=== PATIENT | female | born 2005 | race Caucasian/White ===

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

== ENCOUNTER 2023-02-18 10:32 | Emergency (ER) | payer MEDICAID, SELFPAY ==
--- NOTE | 2023-02-18 10:30 | RT.EKG_ITS ---
APPROVED REPORT Exam: Resting ECG Reason for Exam: chest pain Patient Location: E HR:76 bpm ECG Measurements Heart Rate 76 AXIS SD 162 P 57 QRSd 98 QRS 87 QT 367 T 57 QTc 413 Conclusion Sinus rhythm.. V-rate 60- [address]. [address] segment or T wave abnormalities to suggest occlusive MA
[2023-02-18 10:37] VITALS: BP 125/77; PULSE 87; RESP 18; TEMP 36.9; O2SAT 97
--- NOTE | 2023-02-18 12:02 | ED.GENADUL_ITS ---
Discharge Plan Disposition Patient Disposition: Home Condition: Good Discharge Details Clinical Impression: Chest wall pain, chronic, Acute chest wall pain Primary Care Provider: Unknown,Unknown ED Provider: Fe Ryan Home Meds and New Rx's Prescriptions: Continued Kyleena 17.5 mcg/24 hrs (5 yrs) 19.5 mg intrauterine device 1 device intrauterine ONCE Qty: 1 0RF Discharge Instructions Instructions: Chest Wall Pain (ED) Additional Instructions: As we discussed, your chronic chest pain sounds muscular in nature. I do encourage that you stop smoking, cut back on red pills and encourage water intake. You may use Tylenol and ibuprofen as needed for discomfort. May also try topical options such as heat or ice as well as lidocaine patches which are available [id number]. I also encourage you to take a home test as you declined when here today. As we discussed, there are certainly testing that you can have completed should you want to return for any further. I would like for you to follow-up with your primary care as it sounds to be an ongoing issue for you. If you develop shortness of breath, difficulty breathing or fever/chills or other new/worsening symptom please seek care urgently once again. Discharge Data Discharge Date/Time-TO BE ENTERED AT DEPARTURE: 02/18/23 12:23 Medical Decision Making Patient is a 17-year-old female presenting today for chest pain. She reports that she has had this ongoing for over a year. Was seen at outside emergency department for the same at which time she did not have a definitive diagnosis made per the patient. She denies any shortness of breath. No pain with deep inspiration. Pain is more with twisting movements, lifting maple syrup at work and other movements of the upper extremities. [place] like pain was increased today compared to her more chronic pain although she is not having any significant pain currently. She declines any analgesics and states that she does not take at home as she does not like taking medications. States that she does have some low-level nausea in the morning. It does have an IUD in place and does not feel that she is declines a test here. She does have local primary care who she sees routinely. Has not discussed her chest pain with her primary care. She denies any family history of CAD or heart disease. No history of DVT or PE. On exam, patient appears nontoxic. She is hemodynamically stable. Lung sounds are clear, normal cardiac exam. No lower extremity edema. She does have reproducible chest pain with palpation as well as with movement of the upper extremities and twisting of the chest wall. Really concerned for musculoskeletal cause given the reproducibility. 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 She is not having exertional symptoms to suggest ACS or she have a personal or family history to suggest this. Has not had any calf tenderness, shortness of breath to suggest PE. Wells score is negative. Discussed further evaluation including imaging and labs and patient declines. States that her lunch break is over and would like to be able to go back to work. She is aware that we have not completed any further diagnostic evaluation at this time. She would prefer to discuss this further with her primary care. She is aware she may return at any time for further evaluation work-up. All of her questions and concerns were addressed and she is in agreement with this plan. HPI General Date/Time Provider Initiated Documentation: 02/18/23 11:00 . Limitations to Documentation: no limitations . Information obtained by: patient and RN notes reviewed . History of Present Illness 17 year old F presents to the emergency department with the chief complaint of Anterior chest pain, described as moderate and similar to prior episodes, Quality is described as stabbing and aching, and is localized to the chest. Patient reports no radiation. Patient started experiencing this year(s) and it has been intermittent. Immobilization improves symptom(s), Movement worsens symptoms (Lifting at work) . Patient notes no other symptoms.. Patient did receive the following treatments prior to arrival, none Related Data Home Medications Medication Instructions Recorded Confirmed levonorgestrel 17.5 mcg/24 hrs 1 device intrauterine ONCE #1 ea 04/12/21 02/18/23 (5yrs) 19.5mg intrauterine device (Kyleena) Previous Rx's Medication Instructions Recorded levonorgestrel 17.5 mcg/24 hrs 1 device intrauterine ONCE #1 ea 04/12/21 (5yrs) 19.5mg intrauterine device (Kyleena) Allergies Allergy/AdvReac Type Severity Reaction Status Date / Time No Known Allergies Allergy Verified 02/18/23 10:40 General Stated Complaint: Chest Pain BRYSON: 3 Review of Systems Constitutional Constitutional: Reports as per HPI, Denies chills, Denies fever(s), Denies headache(s) and Denies poor appetite Eyes Eyes: Denies change in vision ENT Ears, Nose, Mouth, and Throat: Denies dizziness and Denies headache(s) Cardiovascular Cardiovascular: Reports as per HPI, Denies dyspnea and Denies dyspnea on exertion Respiratory Respiratory: Reports as per HPI, Denies chest congestion, Denies cough, Denies pain on inspiration, Denies pain with cough, Denies dyspnea and Denies dyspnea on exertion Gastrointestinal Gastrointestinal: Reports as per HPI, Denies abdominal pain, Denies diarrhea, Denies nausea and Denies vomiting Musculoskeletal Musculoskeletal: Reports as per HPI and Denies back pain Integumentary/Breasts Skin/Breast: Reports as per HPI and Denies rash Neurologic Neurologic: Reports as per HPI, Denies dizziness and Denies headache(s) PFSH All Active Problems (Updated 02/18/23 @ 12:16 by PETRONA Centeno) Chest wall pain, chronic (Acute) Acute chest wall pain (Acute) IUD surveillance (Acute 04/12/21) Contraceptive management (Acute) Depression (Chronic) Considers killing herself daily, has thought of plans, uncertain if she would follow through on one. Is interested in a therapist. Skeptical of meds Need for HPV vaccine (Acute) needs HPV #2 Anxiety (Acute 05/02/15) Learning difficulty (Acute 05/02/15) BMI (body mass index), pediatric, 5% to less than 85% for age (Chronic 01/10/16) Attention deficit hyperactivity disorder, combined type (Acute 07/07/15) Medical History (Updated 02/18/23 @ 12:16 by PETRONA Centeno) Anxiety Attention deficit hyperactivity disorder (ADHD) started meds age 4-7, Dr. Garay Right flank pain Family History Mother Substance abuse Bleeding disorder itp Father Essential hypertension Heart disease Other Alcohol abuse Social History (Updated 03/15/21 @ 12:17 by Radha Mai MD) Smoking/Tobacco Use Status: Current every day Tobacco Type: e-cigarettes Smoking risk assessment performed?: Yes Alcohol Intake: current Drug use: Current Sobriety Substance use type: marijuana Counseling given: Yes Housing: apartment Education Level: high school Details: graduates 2021 Sexually active: Yes Do you feel safe at home: Yes Do you feel safe in your relationship?: Yes Female Reproductive History Menstrual control method: progestin IUCD History History 0 Para Hx # Term Pregnancies Multiple births Hx # Pregnancies Ectopic pregnancies AB induced Hx Number of Living Children AB spontaneous Exam Const General: cooperative, healthy appearing, comfortable, no acute distress and well developed Nutritional Appearance: average body habitus and well nourished Orientation: alert, awake and oriented x3 HENMT Head: normal to inspection Ears: hearing grossly normal bilaterally Mouth: moist mucous membranes Chest Chest: normal inspection of the chest, normal palpation of entire chest wall and no crepitus Resp Effort & Inspection: normal respiratory effort, able to speak in complete sentences and no respiratory distress Auscultation: clear to auscultation bilaterally, no rales, no rhonchi and no w heezes Cardio Rate: regular rate Rhythm: regular rhythm Heart Sounds: S1 normal and S2 normal Back/Spine/Pelvis Thoracic/Lumbar Spine: thoracic and lumbar spine normal to inspection Skin General skin exam: no rashes or lesions noted Trauma: no lacerations or abrasions Neuro General: patient alert, patient awake and patient oriented x3 Cognition: normal cognition Speech: speech normal Gait: normal gait Extrem General: normal to inspection, capillary refill normal, no pedal edema, no calf tenderness and normal gait Psych Appearance: grossly normal and well kempt Mental Status: mental status grossly normal Speech and Movement: speech and movement normal Course Vital Signs Vital signs: Vital Signs Temperature 36.9 C 02/18/23 10:37 Pulse 87 02/18/23 10:37 Respiratory Rate 18 02/18/23 10:37 Blood Pressure 125/77 02/18/23 10:37 Pulse Oximetry 97 02/18/23 10:37 Temperature 36.9 C 02/18/23 10:37 Temperature Source Skin 02/18/23 10:37 Pulse 87 02/18/23 10:37 Respiratory Rate 18 02/18/23 10:37 Respiratory Effort Normal, Non-Labored 02/18/23 10:41 Blood Pressure 125/77 02/18/23 10:37 Blood Pressure Position Sitting 02/18/23 10:37 Pulse Oximetry 97 02/18/23 10:37 Oxygen Delivery Method Room Air 02/18/23 10:37 Oxygen Flow Rate 0 02/18/23 10:37 Pain Level 7 02/18/23 10:37 PAWSS Have you Been Recently Intoxicated or Drunk Within the Last 30 days?: No Have you Ever Experienced Previous Episodes of Alcohol Withdrawal?: No Have you ever Experienced Withdrawal Seizures?: No Have you ever Experienced Delirium Tremens(DT)s?: No Have you ever undergone Alcohol Rehabilitation Treatment (i.e, inpt ot outpatient treatment programs)?: No Have you ever Experienced Blackouts?: No Have you ever Combined Alcohol with other Downers within the last 90 days?: No Have you ever Combined Alcohol with any other Substance of Abuse during the last 90 days?: No Positive Blood Alcohol level on Presentation? [PCS.BAL]: No Evidence of Increased Autonomic Activity (i.e. HR>120, tremor, sweating, agitation, nausea)?: No Result: 0
[2023-02-18 12:22] VITALS: BP 125/77; PULSE 87; RESP 18; TEMP 36.9; O2SAT 97
== END 2023-02-18 12:23 | disposition home or self-care (01) ==
PROVIDERS: Emergency Provider Physician Assistant
DX: R07.89 Other chest pain (principal)
CPT/HCPCS: 93005; 99283; 93010

== ENCOUNTER 2024-01-08 21:29 | Emergency (ER) | payer MEDICAID, SELFPAY ==
[2024-01-08 21:36] VITALS: BP 119/65; PULSE 86; RESP 15; TEMP 36.9; O2SAT 98
[2024-01-08 21:37] VITALS: O2SAT 99
[2024-01-08 21:39] VITALS: BP 119/65; PULSE 68; O2SAT 98
[2024-01-08 21:40] VITALS: BP 119/65; PULSE 86; RESP 15; TEMP 36.9; O2SAT 98
[2024-01-08 21:41] VITALS: O2SAT 96
[2024-01-08 21:46] VITALS: BP 117/71; PULSE 83
[2024-01-08 21:59] LABS: Bilirubin Negative (Negative); Blood Negative (Negative); Clarity Sl Cloudy (Clear); Glucose Negative (Negative); Ketones 15 mg/dL (Negative); Leukocyte Esterase Small (Negative); Nitrite Negative (Negative); Specific Gravity 1.025 (1.005-1.025); pH 6.5 (5-8)
[2024-01-08 22:07] LABS: Bacteria Moderate HPF (Negative); C & S Indicated? No/Sq. Contamination; Casts Negative LPF (Negative); Crystals Negative HPF (Negative); Epithelial Cells Many HPF (Negative); Mucus Moderate (Negative); RBC 0-2 HPF (0-2)
--- NOTE | 2024-01-08 22:24 | ED.GENADUL_ITS ---
Discharge Plan Discharge Details Chief Complaint: Abd Prob Primary Care Provider: None,None ED Provider: Neftaly Basurto Home Meds and New Rx's Prescriptions: No Action Kyleena 17.5 mcg/24 hrs (5 yrs) 19.5 mg intrauterine device 1 device intrauterine ONCE Qty: 1 0RF HPI General Date/Time Provider Initiated Documentation: 01/08/24 21:33 . HPI Narrative: 18-year-old female presents with over 1 month of intermittent daily vomiting body aches nausea and abdominal discomfort upper in nature has noted some small amounts of blood in her urine without dysuria. 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 This has not been helping. Patient denies abdominal surgery in the past Related Data Home Medications ?Medication ?Instructions ?Recorded ?Confirmed levonorgestrel 17.5 mcg/24 hr (up 1 device intrauterine ONCE #1 ea 04/12/21 01/08/24 to 5 yrs) 19.5mg intrauterine device (Kyleena) Previous Rx's ?Medication ?Instructions ?Recorded levonorgestrel 17.5 mcg/24 hr (up 1 device intrauterine ONCE #1 ea 04/12/21 to 5 yrs) 19.5mg intrauterine device (Kyleena) Allergies Allergy/AdvReac Type Severity Reaction Status Date / Time No Known Allergies Allergy Verified 01/08/24 21:44 General Stated Complaint: Abd Prob BRYSON: 4 Exam Narrative Exam Narrative: Alert oriented interactive Moist mucous membranes tolerate secretions Abdomen soft nontender nondistended mild subjective discomfort in right upper quadrant without guarding or rebounding Moving all extremities without deficit No evidence of rash or trauma Course Vital Signs Vital signs: Vital Signs Temperature 36.9 C 01/08/24 21:36 Pulse 86 01/08/24 21:36 Respiratory Rate 15 01/08/24 21:36 Blood Pressure 119/65 01/08/24 21:36 Pulse Oximetry 98 01/08/24 21:36 Temperature 36.9 C 01/08/24 21:40 Temperature Source Oral 01/08/24 21:40 Pulse 86 01/08/24 21:40 Respiratory Rate 15 01/08/24 21:40 Respiratory Effort Normal 01/08/24 21:40 Blood Pressure 119/65 01/08/24 21:40 Blood Pressure Position Sitting 01/08/24 21:40 Pulse Oximetry 98 01/08/24 21:40 Oxygen Delivery Method Room Air 01/08/24 21:40 Oxygen Flow Rate 0 01/08/24 21:40 Lab/Test Results Lab/Test Results: Laboratory Tests Range/Units 01/08/24 21:40 Urine Color (Yellow) Yellow Urine Clarity (Clear) Sl Cloudy Urine pH (5-8) 6.5 Ur Specific [place] (1.005-1.025) 1.025 Urine Protein (Neg-Trace) mg/dL 30 H Urine Ketones (Negative) mg/dL 15 H Urine Blood (Negative) Negative Urine Nitrite (Negative) Negative Urine Bilirubin (Negative) Negative Urine Urobilinogen (Up to 0.2) mg/dL 2.0 H Ur Leukocyte Esterase (Negative) Small H Urine RBC (0-2) HPF 0-2 Urine WBC (0-5) HPF 5-10 Ur Epithelial Cells (Negative) HPF Many Urine Crystals (Negative) HPF Negative Urine Bacteria (Negative) HPF Moderate Urine Casts (Negative) LPF Negative Urine Mucus (Negative) Moderate Ur Culture Indicated? No/Sq. Contamination Urine Glucose (Negative) mg/dL Negative POC- Test(urine) Negative Medical Decision Making 18-year-old female presents with over 1 month of intermittent daily vomiting body aches nausea and abdominal discomfort upper in nature has noted some small amounts of blood in her urine without dysuria. 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 This has not been helping. Patient denies abdominal surgery in the past; resting comfortably hemodynamically stable abdomen soft nontender nondistended, subjective discomfort in right upper quadrant without peritoneal signs. Consider biliary colic versus irritable bowel syndrome versus enteritis versus less likely appendicitis most also consider UTI lower suspicion for colitis or malignancy. Patient has not had any blood work or imaging for this series of complaints, will pursue basic labs lipase urinalysis CT abdomen pelvis. Trial of famotidine fluids close reassessment 23: 30 resting early no acute distress. Labs largely unremarkable. Awaiting CT results for dispo Quality:SDOH Health Related Social Needs: No Data to Display PFSH All Active Problems (Updated 03/21/23 @ 00:06 by SUPRIYA DOZIER) IUD surveillance (Acute 04/12/21) Contraceptive management (Acute) Depression (Chronic) Considers killing herself daily, has thought of plans, uncertain if she would follow through on one. Is interested in a therapist. Skeptical of meds Need for HPV vaccine (Acute) needs HPV #2 Anxiety (Acute 05/02/15) Learning difficulty (Acute 05/02/15) BMI (body mass index), pediatric, 5% to less than 85% for age (Chronic 01/10/16) Attention deficit hyperactivity disorder, combined type (Acute 07/07/15) Medical History (Updated 03/21/23 @ 00:06 by SUPRIYA DOZIER) Right flank pain Attention deficit hyperactivity disorder (ADHD) started meds age 4-7, Dr. Garay Anxiety Family History Mother Substance abuse Bleeding disorder itp Father Essential hypertension Heart disease Other Alcohol abuse Social History (Updated 03/15/21 @ 12:17 by Radha Mai MD) Smoking/Tobacco Use Status: Current every day Tobacco Type: e-cigarettes Smoking risk assessment performed?: Yes Alcohol Intake: current Drug use: Current Sobriety Substance use type: marijuana Counseling given: Yes Housing: apartment Education Level: high school Details: graduates 2021 Sexually active: Yes Do you feel safe at home: Yes Do you feel safe in your relationship?: Yes Female Reproductive History Menstrual control method: progestin IUCD History History 0 Para Hx # Term Pregnancies Multiple births Hx # Pregnancies Ectopic pregnancies AB induced Hx Number of Living Children AB spontaneous PAWSS Have you Been Recently Intoxicated or Drunk Within the Last 30 days?: No Have you Ever Experienced Previous Episodes of Alcohol Withdrawal?: No Have you ever Experienced Withdrawal Seizures?: No Have you ever Experienced Delirium Tremens(DT)s?: No Have you ever undergone Alcohol Rehabilitation Treatment (i.e, inpt ot outpatient treatment programs)?: No Have you ever Experienced Blackouts?: No Have you ever Combined Alcohol with other Downers within the last 90 days?: No Have you ever Combined Alcohol with any other Substance of Abuse during the last 90 days?: No Positive Blood Alcohol level on Presentation? [PCS.BAL]: No Evidence of Increased Autonomic Activity (i.e. HR>120, tremor, sweating, agitation, nausea)?: No Result: 0
[2024-01-08] MEDS: Famotidine 20 MG/2 ML VIAL IVP (22:34)
[2024-01-08] MEDS: Normal Saline 1,000 ML 1000 ML IV (22:34)
[2024-01-08 22:44] LABS: Abs Immature Grans 0.03 10^3/uL (0.0-0.06); Absolute Basophil Count 0.05 10^3/uL (0.0-0.2); Absolute Eosinophil Count 0.04 10^3/uL (0.0-0.7); Absolute Lymphocyte Count 2.83 10^3/uL (1.2-3.4); Absolute Monocyte Count 0.96 10^3/uL (0.1-0.8); Basophils % 0.4 %; Eosinophils % 0.3 %; HCT 41.9 % (36.0-46.0); HGB 15.2 g/dL (11.2-15.7); Immature Grans % 0.2 %; Lymphocytes % 21.6 %; MCH 31.5 pg (27.0-33.0); MCHC 36.3 % (32.0-36.0); MCV 87 fL (80-95); Monocytes % 7.3 %; Neutrophils % 70.2 %; Platelet Count 310 10^3/uL (130-400); RBC 4.82 10^6/uL (3.93-5.22); RDW 11.5 % (11.7-14.6); RDW-SD 36.7 fL
[2024-01-08] MEDS: Normal Saline - Diluent 50 ML VIAL IV (23:04)
[2024-01-08] MEDS: Omnipaque 350 MG/ML 100 ML BTL IJ (23:08)
[2024-01-08 23:09] LABS: ALT 27 U/L (14-59); AST 12 U/L (15-37); Albumin 4.1 g/dL (3.4-5.0); Alkaline Phosphatase 116 U/L (46-116); BUN 9 mg/dL (7-18); Bilirubin, Total 0.65 mg/dL (0.2-1.0); CREATININE 0.8 mg/dL (0.55-1.02); Calcium 9.2 mg/dL (8.5-10.1); Chloride 102 mmol/L (98-107); Estimated GFR 108.11 (mL/min/1.73m2); Glucose 84 mg/dL (74-106); Lipase 42 U/L (16-77); Potassium 3.2 mmol/L (3.5-5.1); Sodium 137 mmol/L (136-145); Total Protein 7.7 g/dL (6.4-8.2)
--- NOTE | 2024-01-08 23:09 | DI.CT_ITS ---
Exam(s) CT ABDOMEN PELVIS W EXAM: CT ABDOMEN PELVIS W CLINICAL HISTORY: chronic recurrent vomiting, RUQ pain. TECHNIQUE: Imaging Protocol: Axial computed tomography images with coronal and sagittal reformatted images were created and reviewed CONTRAST MATERIAL: Intravenous: Omnipaque-350 100cc Oral: None COMPARISON: No exams were available for comparison FINDINGS: VISUALIZED LUNG BASES: No nodules nor pleural effusions evident. ABDOMEN: There is no ascites. LIVER: There are no focal hepatic lesions evident. No dilated intrahepatic ducts. GALLBLADDER/BILIARY: No obvious gallbladder pathology. CBD is not dilated. PANCREAS: No evidence of pancreatic mass nor dilatation of the pancreatic duct. SPLEEN: Spleen is not enlarged. No obvious intrasplenic lesions. Splenic and portal veins are paten t. ADRENALS: There are no significant adrenal masses. KIDNEYS:No cysts evident. No solid renal masses. No calculi nor hydronephrosis.. ABDOMINAL AORTA: Abdominal aorta is not enlarged. LYMPH NODES:There is no retroperitoneal nor paraaortic adenopathy. ABDOMINAL WALL: No evidence of significant anterior abdominal wall nor inguinal hernia. GI: There is no evidence of bowel obstruction, free air, nor abscess. PELVIS: GI: No evidence of appendicitis.No evidence of sigmoid diverticulitis. LYMPH NODES: There is no intrapelvic nor inguinal adenopathy. REPRODUCTIVE: Uterus is retroverted. There is an IUD in the endometrial canal which appears to be in satisfactory position. URINARY BLADDER: No calculi nor obvious masses evident OSSEOUS: No fractures and no significant osseous lesions. IMPRESSION: 1. No significant acute findings in the abdomen and pelvis.x 2. There is an IUD in the endometrial canal of the uterus. RADIATION DOSE DELIVERED: Total DLP DATA REPOSITORY: All CT scans at this facility are submitted to the National Radiology Data Registry (NRDR) Dose Index Registry (DIR) with the [employer] (ACR). RADIATION OPTIMIZATION: All CT scans at this facility use at least one of these dose optimization te chniques: automated exposure control; mA and/or kV adjustment per patient size (includes targeted exa ms where dose is matched to clinical indication); or iterative reconstruction.
--- NOTE | 2024-01-08 23:50 | DI.VRAD_ITS ---
PROCEDURE INFORMATION: Exam: CT Abdomen And Pelvis With Contrast Exam date and time: 01/08/2024 11:01 PM Age: 18 years old Clinical indication: Other: Chronic recurrent vomiting, ruq pain TECHNIQUE: Imaging protocol: Computed tomography of the abdomen and pelvis with contrast. COMPARISON: SC XR ABDOMEN FLAT PLATE 09/03/2018 4:27 PM FINDINGS: Liver: Normal. No mass. Gallbladder and biliary ducts: Normal. No calcified stones. No ductal dilation. Pancreas: Normal. No ductal dilation. Spleen: Normal. No splenomegaly. Adrenal glands: Normal. No mass. Kidneys and ureters: Normal. No hydronephrosis. Stomach and bowel: Unremarkable. No obstruction. No mucosal thickening. Appendix: No evidence of appendicitis. Intraperitoneal space: Unremarkable. No free air. No significant fluid collection. Vasculature: Unremarkable. No abdominal aortic aneurysm. Lymph nodes: Prominent right lower quadrant lymph nodes, likely representing mesenteric adenitis. Urinary bladder: Unremarkable as visualized. Reproductive: IUD in the uterus. Bones/joints: Mild curvature of the lumbar spine convex to the left. Posterior osteophyte disc complex at T11-T12 causing mild bony canal stenosis. Soft tissues: Unremarkable. IMPRESSION: No acute intra-abdominal process. Dictated and Authenticated by: Molina Mullins MD. Ordering:GWEN Higginbotham MD
--- NOTE | 2024-01-09 | ED.PROG_ITS ---
Date of service: 01/08/24 Time of Service: 23:30 Medical Decision Making This patient was signed out to me. Please see previous notes for H&P and initial eval. In brief, 18yo F with one month of intermittent vomiting and abdominal pain. Laboratory workup reassuring and benign abdominal exam. Signed out pending CT abd/pelvis; if no acute findings would discharge home to PCP followup. CT independently reviewed; noobstruction or free fluid on my view, agree [facility] radiology read below. On reassessment she remains well appearing with reassuring vital signs, benign abdominal exam. Discharged home to followup with PCP; discharge instructions and return precautions were reviewed with patient who verbalized understanding. All questions were answered and she is in full agreement with the plan. Imaging Data Radiologic Study: Imaging: CT Scan Radiologist's impression: No acute intra-abdominal process Quality:SDOH Health Related Social Needs: No Data to Display Sign Out Sign Out Data: Sign Out Comment: >1 month intermittent vomiting abd pain body aches unintentional weight loss; labs largely unremarkable, pending CT abd pelv for dispo Last updated by Neftaly Basurto MD at 01/08/24 23:33 Discharge Plan Disposition Patient Disposition: Home Condition: Good Discharge Details Clinical Impression: Vomiting Primary Care Provider: None,None ED Provider: Tamia Ramos Home Meds and New Rx's Prescriptions: Continued Kyleena 17.5 mcg/24 hrs (5 yrs) 19.5 mg intrauterine device 1 device intrauterine ONCE Qty: 1 0RF Discharge Instructions Instructions: Abdominal Pain, Adult ED, Nausea and Vomiting, Adult ED Additional Instructions: Tylenol and ibuprofen over the counter for pain; follow the directions on the bottle. You can continue to take zofran at home as previously prescribed. Call your primary care doctor today to schedule an appointment for within the next 72 hours to followup on your visit here. Return to the emergency department for new or worsening symptoms including new/different/worse abdominal pain, inability to keep down fluids, fever, or if you have any other concerns. Stand Alone Forms: Work Release
== END 2024-01-09 00:21 | disposition home or self-care (01) ==
PROVIDERS: Emergency Medicine; Emergency Provider Student in an Organized Health Care Education/Training Program
DX: R11.10 Vomiting, unspecified (principal)
CPT/HCPCS: 00123; 80053; 81025; 83690; 96361; 96374; 99285; 74177; 81003; 81015; 84443; 85025; 99283; J3490

== ENCOUNTER 2024-05-15 15:13 | Outpatient (REF) | payer MEDICAID, SELFPAY ==
--- OUTSIDE RECORDS SUMMARY | 2024-05-15 15:16 | XMS_ITS | Encounter Summary ---
Author Organization [facility]ly [facility] [place] [address] Care Team Providers Care Communication Assistant Name Role Phone Elissa Avendano MD Primary Care Provider [phone] Encounter Details Date Type Department Care Team (Late st Contact Info) Description 02/06/2018 Telephone Dermatology at [facility] [address] [place] [id number] Lucita Choudhury MD [facility] [address] [place] [address] Social History Tobacco Use Types Packs/Day Years Used Date Smoking Tobacco: Never Smokeless Tobacco: Never Sex and Gender Information Value Date Recorded Sex Assigned at Not on file Gender Identity Not on file Sexual Orientation Not on file documented as of this encounter Miscellaneous Notes * Telephone Encounter - Lucita Choudhury - 02/06/2018 1:57 PM EDT Spoke to patient's mother about the culture results posted below. Suspect that Keflex has been treating any bacterial infection that was present. Recommend completion of the 14 days of Keflex. Will plan to treat molluscum at follow up visit, Mom reports some of her spots are becoming red andswollen. 2d ago ?? Skin/Superficial Wound Culture Rare normal cutaneous moody ?? Gram Stain No Neutrophils seen. No microorganisms seen. ?? Resulting Agency [facility] Lab documented in this encounter Plan of Treatment Not on file documented as of this encounter Visit Diagnoses Not on filedocumented in this encounter Care Teams Communication Assistant Relationship Specialty Start Date End Date Elissa Avendano MD [address] [place] [address] [place] [address] PCP - General Pediatrics 02/04/18 documented as of this encounter
--- OUTSIDE RECORDS SUMMARY | 2024-05-15 15:16 | XMS_ITS | Referral Summary ---
Author Organization [facility] Address [address] [place] [address] Care Team Providers Care Sales Representative Aircraft Name Role Phone Unavailable Primary Care Provider Unavailabl e Social History Tobacco Use Types Packs/Day Years Used Date Smoking Tobacco: Never Assessed Comments Unknown Sex and Gender Information Value Date Recorded Sex Assigned at Not on file Legal Sex Female 13:02 EDT Gender Identity Not on file Sexual Orientation Not on file Plan of Treatment Not on file
--- OUTSIDE RECORDS SUMMARY | 2024-05-15 15:16 | XMS_ITS | Encounter Summary ---
Author Organization [facility] Address [facility] [place] [address] Care Team Providers Care Petroleum Analyst Name Role Phone Elissa Avendano MD Primary Care Provider [phone] Reason for Visit * Reason Comments Cellulitis * Consultation (Routine) - Closed Specialty Diagnoses / Procedures Referred By Fish kenney Referred To Contact Dermatology Diagnoses CELLULITIS OF LEFT LOWER EXTREMITY Philomena Sorenson, PERSONNEL MONITOR [address] [place] [address] [facility] Dermatology [address] [place] [address] Referral ID Status Reason Start Date Expiration Date V isits Requested Visits Authorized [id number] Closed Consult, Test & Treat Connection Center 02/04/2018 02/04/2019 1 1 Encounter Details Date Type Department Care Team (Late st Contact Info) Description 02/04/2018 4:00 PM EDT Office Visit Dermatology at [facility] [address] [place] [address] Lucita Choudhury MD [facility] [place] [address] Molluscum contagiosum; Infection Social History Tobacco Use Types Packs/Day Years Used Date Smoking Tobacco: Never Smokeless Tobacco: Never Sex and Gender Information Value Date Recorded Sex Assigned at Not on file Gender Identity Not on file Sexual Orientation Not on file documented as of this encounter Patient Instructions * Patient Instructions* Edwige Cruz LPN - 02/04/2018 4:00 PM EDT - Bleach Baths 3 times per week: Add about 1/2 cup of bleach to 40 gallons of lukewarm water (the average bathtub holds about 40 gallons when filled) or 1/2 teaspoon of bleach in one gallon. Soak for20 minutes, rinsed off to remove bleach. Pat dry and quickly place topical steroid or moisturizer, preferably Vaseline documented in this encounter Progress Notes * Lucita Choudhury W - 02/04/2018 4:00 PM EDT Images from the original note were not included. DERMATOLOGY - NEW PATIENT NOTE Date of service: 02/04/2018 Thania Guy : 2005, 12 y.o. Chief Complaint: Chief Complaint Patient presents with ??? Cellulitis HPI: Thania Guy is a 12 y.o. female referred by Philomena Sorenson with the following concerns: Cellulitis of left lower leg. Abceses on lower extremities, patient states that there is itching, burning, bleeding. For two plus months. Patient states that it hurts to walk. Patient states she leaves her legs alone but I observed her touching them. Patient is currently on Keflex 500mg three timesa day. Previous treatments include amoxicillin, clindamycin and bactrim. Mother states that this started at her annual physical, November 2017. PCP recommended to use tea tree oil which seemed to have made it worse. Relevant Skin History: - Okay to leave detailed message with results? Yes - Skin cancer (including type): None Family History: Melanoma: None Relevant Social History: - Highschool student - 3 Siblings - No work - Massiel mother here today Meds: Current Outpatient Prescriptions Medication Sig Dispense Refill ??? dextroamphetamine-amphetamine (ADDERALL XR) 20 mg Capsule, Sust. Release 24 hr Daily ??? cephalexin (KEFLEX) 500 mg Capsule Three times a day No current facility-administered medications for this visit. Allergies: Allergies not on file Review of Systems: - General: Feels well. - Skin: No other skin concerns. Examination: - Constitutional: Patient was alert, well-appearing and in no noticeable distress. - Skin: Skin examination of the back, right and left lower extremities, hands was normal with the exception of the findings listed below. Diagnosis/Skin findings/Assessment/Plan: 1. Molluscum contagiosum, inflamed and superinfection. Scattered, 0.1-0.2cm, shiny, round, umbilicated papules, some with intense surrounding erythema. Bilateral lower legs. Culture done today to check bacterial sensitivity. - Continue Rx: Cephalexin (Keflex) 500mg Capsule 7 more day supply for 14 days of treatment. - Once acute infection is treated, will treat molluscum with Cantharone Plus RTC: 10 - 14 day for follow up on results and possible Molluscum treatment The following photos were obtained with patient consent: Molluscum contagiosum. Scattered, 0.1-0.2cm, shiny, round, umbilicated papules. Bilateral lower legs. Note initiated by Edwige Cruz LPN. I performed the above scribed service and agree with the accuracy of the documentation in this encounter. Reviewed and signed by Lucita Choudhury MD Resident in Dermatology [facility] Patient seen in conjunction with staff floral merchandiser: oSna Leiva MD Section of Dermatology [facility] * Sona Leiva MD - 02/04/2018 4:00 PM EDT Images from the original note were not included. I directly supervised Dr. Lucita Choudhury during this office visit. Dr. Choudhury presented the historyand physical exam to me. I then saw and examined this patient with Dr. Choudhury. We reviewed the history and pertinent details and I confirmed the physical findings. I agree with the details of the history and physical exam as documented in Dr. Choudhurys note. Sona Leiva MD Warehouse Operator, Pediatric Dermatology Section of Dermatology [facility], [place]. [facility] documented in this encounter Plan of Treatment Not on file documented as of this encounter Procedures Procedure Name Priority Date/Time Associated Diagnosis Comments SKIN/SUP WOUND CULTURE Routine 02/04/2018 5:11 PM EDT Infection documented in this encounter Results * Skin/Superficial Wound Culture Leg, Right (02/04/2018 5:11 PM EDT) Skin/Superfic ial Wound Culture Rare normal cutaneous moody [facility] Gram Stain No Neutrophils seen. No microorganisms seen. [facility] Swab from superficial wound (specimen) STRUCTURE OF RIGHT LOWER LIMB / Unknown 02/04/2018 5:11 PM EDT 02/04/2018 6:15 PM EDT Narrative Resulting Agency Comment Spec In Lab Sona Leiva MD MICROBIOLOGY - GENER AL ORDERABLES Performing Organization Address City/State/[facility] Co de Phone Number [facility] [place] [address] documented in this encounter Visit Diagnoses Diagnosis Molluscum contagiosum Infection Unspecified infectious and parasitic diseases documented in this encounter Care Teams Petroleum Analyst Relationship Specialty Start Date End Date Elissa Avendano MD [address] [place] [address] PCP - General Pediatrics 02/04/18 documented as of this encounter
--- OUTSIDE RECORDS SUMMARY | 2024-05-15 15:16 | XMS_ITS | Clinical Summary ---
Author Organization [facility] Address [address] [place] [address] Care Team Providers Care Adaptive Physical Education Specialist Name Role Phone Unavailable Primary Care Provider Unavailabl e Social History Tobacco Use Types Packs/Day Years Used Date Smoking Tobacco: Never Assessed Comments Unknown Sex and Gender Information Value Date Recorded Sex Assigned at Not on file Legal Sex Female 13:02 EDT Gender Identity Not on file Sexual Orientation Not on file Plan of Treatment Health Maintenance Due Date Last Done Comments Hepatitis C Screen 2003 Hepatitis B Vaccine (1 of 3 - 19+ 3-dose series) 02/21 COVID-19 Vaccine ( season) 2024
--- OUTSIDE RECORDS SUMMARY | 2024-05-15 15:16 | XMS_ITS | Clinical Summary ---
Author Organization [facility] [place] [address] Care Team Providers Care Lab Technician Name Role Phone Elissa Avendano MD Primary Care Provider [phone] Allergies No known active allergies Medications Medication Sig Dispensed Refills Start Date End Date Status dextroamphetamine-a mphetamine (ADDERALL XR) 20 mg Capsule, Sust. Release 24 hr Daily 09/20/2017 Active cephalexin (KEFLEX) 500 mg Capsule Take 1 capsule by mouth three times daily for total of 14 days 21 capsule 02/04/2018 Active mupirocin (BACTROBAN) 2 % Ointment Apply topically 3 times daily. To tender spots on the legs, and cover with a bandaid. 30 g 02/18/2018 Active Active Problems No known active problems Immunizations Name Administration Dates Next Due Hepatitis B, Unspecified Formulation 2003 Social History Tobacco Use Types Packs/Day Years Used Date Smoking Tobacco: Never Smokeless Tobacco: Never Sex and Gender Information Value Date Recorded Sex Assigned at Not on file Gender Identity Not on file Sexual Orientation Not on file Plan of Treatment Health Maintenance Due Date Last Done Comments Hepatitis B vaccine (0-59 yrs) (2) 03/23/20032002 Chlamydia Screening 2018 HPV vaccine (1 - 3-dose series) 2018 HIV screen 2021 Hepatitis C Screening 2021 Tetanus/Diphtheria/Pertussis Vaccines (1 - Tdap) 02/21 Covid-19 Vaccine ( - 2023- season) 2024 Influenza (Flu) vaccine (1 o f 1 - Influenza standard series) 02/02/2024 PAP Smear 02/22/2024 Care Teams Lab Technician Relationship Specialty Start Date End Date Elissa Avendano MD [address] [place] [address] [place], [place] [id number] PCP - General Pediatrics 02/04/18
--- OUTSIDE RECORDS SUMMARY | 2024-05-15 15:16 | XMS_ITS | Encounter Summary ---
Author Organization [facility] Address [address] [place] [address] Care Team Providers Care Epic Ambulatory Specialists Name Role Phone Unavailable Primary Care Provider Unavailabl e Encounter Details Date Type Department Care Team (Late st Contact Info) Description 03/16/2021 Lab Requisition [facility] Pathology & Laboratory Medicine - [facility] [address] [place] [address] Outr Resulting Lab, Provider Social History Tobacco Use Types Packs/Day Years Used Date Smoking Tobacco: Never Assessed Comments Unknown Sex and Gender Information Value Date Recorded Sex Assigned at Not on file Legal Sex Female 13:02 EDT Gender Identity Not on file Sexual Orientation Not on file documented as of this encounter Plan of Treatment Not on file documented as of this encounter Procedures Procedure Name Priority Date/Time Associated Diagnosis Comments CHLAMYDIA/N. GONORRHOEAE AMPLIFIED NUCLEIC ACID Routine 03/15/2021 12:00 EDT documented in this encounter Results * CHLAMYDIA/N. GONORRHOEAE AMPLIFIED RNA (03/15/2021 12:00 EDT) Neisseria gonorrhoeae Result Negative Negative 03/17/2021 16:38 EDT [facility] Chlamydia trachomatis Result Negative Negative 03/17/2021 16:38 EDT [facility] Urine URINE / Unknown 03/15/2021 1 2:00 EDT 03/17/2021 8:26 EDT Narrative [facility] - 03/17/2021 16:38 EDT A first catch urine specimen is acceptable for detection of Gonorrhea and Chlamydia, but might detect up to 10% fewer infections when compared with vaginal and endocervical swab samples. us Provider Outr Resulting Lab MICROBIOLOGY - GENER AL ORDERABLES Final Result [facility] [address] [place] [address] documented in this encounter Visit Diagnoses Not on filedocumented in this encounter
--- OUTSIDE RECORDS SUMMARY | 2024-05-15 15:16 | XMS_ITS | Encounter Summary ---
Author Organization [facility] Address [facility] [place] [address] Care Team Providers Care Lock Assembler Name Role Phone Elissa Avendano MD Primary Care Provider [phone] Reason for Visit * Reason Comments Skin Lesion Encounter Details Date Type Department Care Team (Late st Contact Info) Description 02/18/2018 4:00 PM EDT Office Visit Dermatology at [facility] [address] [place] [address] Lucita Choudhury MD [facility] [place] [address] Molluscum contagiosum; Staph infection Social History Tobacco Use Types Packs/Day Years Used Date Smoking Tobacco: Never Smokeless Tobacco: Never Sex and Gender Information Value Date Recorded Sex Assigned at Not on file Gender Identity Not on file Sexual Orientation Not on file documented as of this encounter Progress Notes * Lucita Choudhury - 02/18/2018 4:00 PM EDT Images from the original note were not included. DERMATOLOGY - ESTABLISHED PATIENT FOLLOW-UP Date of service: 02/18/2018 Thania Guy : 2005, 12 y.o. Chief Complaint: Chief Complaint Patient presents with ??? Skin Lesion HPI: Thania Guy is a 12 y.o. female last seen by myself on 02/04/2018. Ms. Guy returns today for follow up cellulitis and molluscum on her lower legs. Culture at last visit showed normal moody. She has been taking the Keflex as ordered and finished it on Saturday. Relevant Skin History: - Okay to leave detailed message with results? Yes - Skin cancer (including type): None ?? Family History: Melanoma: None ?? Relevant Social History: - Highschool student - 3 Siblings - No work - Massiel mother here today Medications: Current Outpatient Prescriptions Medication Sig Dispense Refill ??? dextroamphetamine-amphetamine (ADDERALL XR) 20 mg Capsule, Sust. Release 24 hr Daily ??? cephalexin (KEFLEX) 500 mg Capsule Take 1 capsule by mouth three times daily for total of 14 days 21 capsule 0 No current facility-administered medications for this visit. Allergies: No Known Allergies Review of Systems: - General: Feels well. - Skin: No other skin concerns. Examination: - Constitutional: Patient was alert, well-appearing and in no noticeable distress. - Skin: Skin examination of the lower legs, and abdomen Diagnosis/Skin findings/Assessment/Plan: 1 Molluscum contagiosum, inflamed; superinfection resolving. Scattered, 0.1- 0.2cm, shiny, round, umbilicated papules, some with intense surrounding erythema. Bilateral lower legs. - RX: Mupirocin ointment tid x 14 days to tender lesions, then cover with a bandaid - The molluscum present today all have inflammatory reaction, no need for treatment today - Expect resolution in ~ 2-3 weeks RTC: PRN Note initiated by ROGELIO MAY LPN. I performed the above scribed service and agree with the accuracy of the documentation in this encounter. Reviewed and signed by: Lucita Choudhury MD Resident in Dermatology [facility] Patient seen and evaluated with staff floating operator: Sona Leiva MD Section of Dermatology [facility] * Sona Leiva MD - 02/18/2018 4:00 PM EDT I directly supervised Dr. Lucita Choudhury during this office visit. Dr. Choudhury presented the historyand physical exam to me. I then saw and examined this patient with Dr. Choudhury. We reviewed the history and pertinent details and I confirmed the physical findings. I agree with the details of the history and physical exam as documented in Dr. Lechuga note. SONA LEIVA MD Staff Physician documented in this encounter Plan of Treatment Not on file documented as of this encounter Visit Diagnoses Diagnosis Molluscum contagiosum Staph infection Unspecified staphylococcus infection in conditions classified elsewhere and of unspecified site documented in this encounter Care Teams Lock Assembler Relationship Specialty Start Date End Date Elissa Avendano MD [address] [place] [address] PCP - General Pediatrics 02/04/18 documented as of this encounter
--- OUTSIDE RECORDS SUMMARY | 2024-05-15 15:16 | XMS_ITS | Encounter Summary ---
Author Organization [facility] Address [address] [place] [address] Care Team Providers Care Public Speaking Teacher Name Role Phone Unavailable Primary Care Provider Unavailabl e Encounter Details Date Type Department Care Team (Late st Contact Info) Description 10/05/[address] [facility] Pathology & Laboratory Medicine - [facility] [address] [place] [address] Outr Resulting Lab, Provider Social History Tobacco [...] Comments CHLAMYDIA/N. GONORRHOEAE AMPLIFIED NUCLEIC ACID Routine 10/04/2021 14:00 EDT documented in this encounter Results * CHLAMYDIA/N. GONORRHOEAE AMPLIFIED RNA (10/04/2021 14:00 EDT) Neisseria gonorrhoeae Result Negative Negative 10/06/2021 23:00 EDT [facility] Chlamydia trachomatis Result Negative Negative 10/06/2021 23:00 EDT [facility] Swab ENTIRE WALL OF CERVIX / Unknown 10/04/2021 14:00 EDT 10/05/2021 18:30 EDT us Provider Outr Resulting Lab MICROBIOLOGY - GENER AL ORDERABLES Final Result [facility] [address] [place] [address] documented in this encounter Visit Diagnoses Not on filedocumented in this encounter
--- OUTSIDE RECORDS SUMMARY | 2024-05-15 15:16 | XMS_ITS | Encounter Summary ---
Author Organization [facility] Address [address] [place] [address] Care Team Providers Care Funnel Coater Name Role Phone Unavailable Primary Care Provider Unavailabl e Encounter Details Date Type Department Care Team (Late st Contact Info) Description 06/10/2022 Lab Requisition [facility] Pathology & Laboratory Medicine - [facility] [address] [place] [address] Outr Resulting Lab, Provider Social History Tobacco [...] Comments CHLAMYDIA/N. GONORRHOEAE AMPLIFIED NUCLEIC ACID Routine 06/08/2022 15:30 EST documented in this encounter Results * CHLAMYDIA/N. GONORRHOEAE AMPLIFIED RNA (06/08/2022 15:30 EST) Neisseria gonorrhoeae Result Negative Negative 06/11/2022 13:25 EST [facility] Chlamydia trachomatis Result Negative Negative 06/11/2022 13:25 EST [facility] Swab ENTIRE VAGINA / Unknown 06/08/2022 15:30 EST 06/10/2022 18:00 EST us Provider Outr Resulting Lab MICROBIOLOGY - GENER AL ORDERABLES Final Result [facility] [address] [place] [address] documented in this encounter Visit Diagnoses Not on filedocumented in this encounter
[2024-05-15 21:16] LABS: Abs Immature Grans 0.02 10^3/uL (0.0-0.06); Absolute Basophil Count 0.06 10^3/uL (0.0-0.2); Absolute Eosinophil Count 0.06 10^3/uL (0.0-0.7); Absolute Lymphocyte Count 2.15 10^3/uL (1.2-3.4); Absolute Monocyte Count 0.77 10^3/uL (0.1-0.8); Absolute Neutrophil Count 8.75 10^3/uL (1.2-6.7); Basophils % 0.5 %; Eosinophils % 0.5 %; HCT 45.7 % (36.0-46.0); HGB 15.9 g/dL (11.2-15.7); Immature Grans % 0.2 %; Lymphocytes % 18.2 %; MCH 31.5 pg (27.0-33.0); MCHC 34.8 % (32.0-36.0); MCV 91 fL (80-95); MPV 10.9 fL (8.0-11.0); Monocytes % 6.5 %; Neutrophils % 74.1 %; Platelet Count 315 10^3/uL (130-400); RBC 5.04 10^6/uL (3.93-5.22); RDW 11.8 % (11.7-14.6); WBC 11.81 10^3/uL (4.4-10.8)
[2024-05-15 21:33] LABS: Hemoglobin A1C 4.8 % (<5.7)
[2024-05-15 22:00] LABS: ALT 27 U/L (14-59); AST 26 U/L (15-37); Albumin 4.3 g/dL (3.4-5.0); Alkaline Phosphatase 115 U/L (46-116); Anion Gap 8.9 mmol/L (3-11); BUN 10 mg/dL (7-18); Bilirubin, Total 0.51 mg/dL (0.2-1.0); CO2 29.1 mmol/L (21.0-32.0); CREATININE 0.8 mg/dL (0.55-1.02); Calcium 9.3 mg/dL (8.5-10.1); Calculated LDL 86 mg/dL (<100); Chloride 104 mmol/L (98-107); Cholesterol 152 mg/dL (<200); Estimated GFR 107.44 (mL/min/1.73m2); Glucose 71 mg/dL (74-106); HDL Cholesterol 49 mg/dL (40-60); Potassium 3.8 mmol/L (3.5-5.1); Sodium 142 mmol/L (136-145); TSH (W/Ref FT4) 2.13 uIU/mL (0.36-3.74); Total Protein 7.8 g/dL (6.4-8.2); Triglyceride 86 mg/dL (<150); Vitamin D 25 Total 16.1 ng/mL (30-100)
== END 2024-05-15 15:14 | disposition home or self-care (01) ==
LOC: NCHCN 15:13
PROVIDERS: Visit Provider Family Medicine
DX: R11.2 Nausea with vomiting, unspecified (principal); E66.9 Obesity, unspecified; F32.9 Major depressive disorder, single episode, unspecified
CPT/HCPCS: 80053; 80061; 82306; 83036; 84443; 85025

== ENCOUNTER 2024-06-30 14:05 | Outpatient (REF) | payer MEDICAID, SELFPAY ==
--- NOTE | 2024-06-30 09:50 | PAPFT_PTH ---
PATIENT: Thania Guy LOC: [facility]#:[id number] AGE/SX: 19/F ROOM: RE06/30/[address]: LOLI: 2005 BED: DIS: 06/30/2024 SPEC #: [id number] RECD: 06/30/24 17:21 STATUS: BRANDI BETHEA #: [id number] AR: 06/30/24 09:[address]: Sol Walter DEPT: [facility] Cytology RECD BY: Taylor Araiza ENTERED: 06/30/24 17:29 SP TYPE: PAPFT OT DR: Unknown,Unknown Tissues: 1 - CX/ENDOCX FOR PAP SMEARS Procedures: PAP THIN PREP/[facility] Screening HPV DNA PROBE Comments: [id number] (HPV 16 & 18/45) (CHLAMYDIA/GC)
--- OUTSIDE RECORDS SUMMARY | 2024-06-30 14:17 | XMS_ITS | Referral Summary ---
Author Organization [facility] Address [address] [place] [address] Care Team Providers Care Personnel Technician Name Role Phone Unavailable Primary Care Provider [...]
--- OUTSIDE RECORDS SUMMARY | 2024-06-30 14:17 | XMS_ITS | Encounter Summary ---
Author Organization [facility] [place] [address] Care Team Providers Care Home Health Care Physician Name Role Phone Elissa Avendano MD Primary Care Provider [phone] Reason for Visit * Reason Comments Cellulitis * Consultation (Routine) - Closed Specialty Diagnoses / Procedures Referred By Contanant t Referred To Contact Dermatology Diagnoses CELLULITIS OF LEFT LOWER EXTREMITY Philomena Sorenson, RANGE RIDER [address] [place] [address] [facility] Dermatology [address] [place] [address] Referral ID Status Reason Start Date Expiration Date V isits Requested Visits Authorized [id number] Closed Consult, Test & Treat Connection Center 02/04/2018 02/04/2019 1 1 Encounter Details Date Type Department Care Team (Late st Contact Info) Description 02/04/2018 4:00 PM EDT Office Visit Dermatology at [facility] [address] [place] [id number] Lucita Choudhury MD [facility] [place] [address] Molluscum contagiosum; Infection Social History Tobacco Use [...] by Lucita Choudhury MD Resident in Dermatology [facility] Patient seen in conjunction with staff white sugar pan tank operator: Sona Leiva MD Section of Dermatology [facility] * Sona Leiva MD - 02/04/2018 [...] in Dr. Choudhurys note. Sona Leiva MD Tariff Compiler, Pediatric Dermatology Section of Dermatology [facility], [place] [facility] documented in this encounter Plan of Treatment Not on file documented as of this encounter Procedures Procedure Name Priority Date/Time Associated Diagnosis Comments SKIN/SUP WOUND CULTURE Routine 02/04/2018 5:11 PM EDT Infection documented in this encounter Results * Skin/Superficial Wound Culture Leg, Right (02/04/2018 5:11 PM EDT) Skin/Superfic ial Wound Culture Rare normal cutaneous moody [facility] Gram Stain No Neutrophils seen. No microorganisms seen. [facility] Swab from superficial wound (specimen) STRUCTURE OF RIGHT LOWER LIMB / Unknown 02/04/2018 5:11 PM EDT 02/04/2018 6:15 PM EDT Narrative Resulting Agency Comment Spec In Lab Sona Leiva MD MICROBIOLOGY - GENER AL ORDERABLES [facility] [place] [address] documented in this encounter Visit Diagnoses Diagnosis Molluscum contagiosum Infection Unspecified infectious and parasitic diseases documented in this encounter Care Teams Home Health Care Physician Relationship Specialty Start Date End Date Elissa Avendano MD [address] [place] [address] PCP - General Pediatrics 02/04/18 documented as of this encounter
--- OUTSIDE RECORDS SUMMARY | 2024-06-30 14:17 | XMS_ITS | Encounter Summary ---
Author Organization [facility] Address [address] [place] [address] Care Team Providers Care Manager Assembly Name Role Phone Unavailable Primary Care Provider Unavailabl e Encounter Details Date Type Department Care Team (Late st Contact Info) Description 03/16/2021 Lab Requisition [facility] Pathology & Laboratory Medicine - [facility] [address] [place] [address] Outr Resulting Lab, Provider Social History Tobacco [...] gonorrhoeae Result Negative Negative 03/17/2021 16:38 EDT [facility] Chlamydia trachomatis Result Negative Negative 03/17/2021 16:38 EDT [facility] Urine URINE / Unknown 03/15/2021 1 2:00 EDT 03/17/2021 8:26 EDT Narrative [facility] - 03/17/2021 16:38 EDT A first catch urine specimen is acceptable for detection of Gonorrhea and Chlamydia, but might detect up to 10% fewer infections when compared with vaginal and endocervical swab samples. us Provider Outr Resulting Lab MICROBIOLOGY - GENER AL ORDERABLES Final Result [facility] [address] [place] [address] documented in this encounter Visit Diagnoses Not on filedocumented in this encounter
--- OUTSIDE RECORDS SUMMARY | 2024-06-30 14:17 | XMS_ITS | Encounter Summary ---
Author Organization [facility] Address [address] [place] [address] Care Team Providers Care Support Merchandiser Name Role Phone Unavailable Primary Care Provider Unavailabl e Encounter Details Date Type Department Care Team (Late st Contact Info) Description 10/05/2021 Lab Requisition [facility] Pathology & Laboratory Medicine - [facility] [address] [place] [address] Outr Resulting Lab, Provider Social History Tobacco [...] gonorrhoeae Result Negative Negative 10/06/2021 23:00 EDT [facility] Chlamydia trachomatis Result Negative Negative 10/06/2021 23:00 EDT [facility] Swab ENTIRE WALL OF CERVIX / Unknown 10/04/2021 14:00 EDT 10/05/2021 18:30 EDT us Provider Outr Resulting Lab MICROBIOLOGY - GENER AL ORDERABLES Final Result [facility] [address] [place] [address] documented in this encounter Visit Diagnoses Not on filedocumented in this encounter
--- OUTSIDE RECORDS SUMMARY | 2024-06-30 14:17 | XMS_ITS | Clinical Summary ---
Author Organization [facility] Address [address] [place] [address] Care Team Providers Care Counseling Case Manager Name Role Phone Unavailable Primary Care Provider [...]
--- OUTSIDE RECORDS SUMMARY | 2024-06-30 14:17 | XMS_ITS | Clinical Summary ---
Author Organization [facility] Address [facility] [place] [address] Care Team Providers Care Asbestos Hazard Abatement Worker Name Role Phone Elissa Avendano MD Primary Care Provider [phone] Allergies No known active allergies Medications Medication [...] Active Active Problems No known active problems Encounters Date Type Department Care Team Description 05/17/2024 Interpretation Only [facility] in [address] [phone] Massiel Meadows PA from Last 3 Months Immunizations Name Administration Dates Next Due Hepatitis [...] (1 - Tdap) 02/21 Covid-19 Vaccine ( season) 2024 Influenza (Flu) vaccine (1 o f 1 - Influenza standard series) 02/02/2024 PAP Smear 02/22/2024 Procedures Procedure Name Priority Date/Time Associated Diagnosis Comments CT ABDOMEN AND PELVIS W CONTRAST STAT 05/17/2024 3:30 PM EST from Last 3 Months Results * CT Abdomen & Pelvis w Contrast (05/17/2024 3:30 PM EST) PT CLASS E RAD ADMITDTTM [id number] RAD PT RAD INFO [id number]^LAROW^ MASSIEL^S RAD EXAM DESC CTAPW^CT ABD PELVIS W IV CONTRAST ONLY^RIS [facility] WORKSTATION ID [id number] [facility] Anatomical Region Laterality Modality Abdomen, Pelvis Computed Tomogra phy Impressions 05/17/2024 3:45 PM EST No acute findings or active disease in the abdomen and pelvis. Thank you for letting us participate in the care of this patient. ??If you are a health care provider and have any questions regarding this report, please contact the number below. ??For patients who have questions please contact the health health care aide that requested your imaging first. ? Narrative 05/17/2024 3:45 PM EST EXAMINATION: CT ABD PELVIS W IV CONTRAST ONLY CLINICAL HISTORY: ??Reason for Abdomen: ??RLQ Pain ??Add'l Info: r/o renal calculi, appy TECHNIQUE: Helical CT of the abdomen and pelvis following the intravenous administration of 99 mL of Omnipaque 350. Oral contrast was not administered. COMPARISON: None FINDINGS: Lower chest: Normal. Liver: Normal size and attenuation without lesions. Bile ducts: Nondilated. Gallbladder: No calcified gallstones. Normal caliber wall. Pancreas: Normal attenuation without ductal dilatation. Spleen: Normal. Adrenals: Normal. Kidneys: Normal. No renal stones. Urinary Bladder: Normal. Vasculature: No abdominal aortic aneurysm. Lymph Nodes: No enlarged lymph nodes. Bowel: Nondilated, no wall thickening. Normal appendix. Peritoneum and retroperitoneum: No free fluid. No pneumoperitoneum. No loculated fluid collection or mesenteric inflammation. Abdominal wall: Normal. Reproductive organs: IUD is present in the uterus. Simple cyst left ovary. Osseous structures: No suspicious lesions. Procedure Note Tito Viera MD - 05/17/2024 EXAMINATION: CT ABD PELVIS W IV CONTRAST ONLY CLINICAL HISTORY: Reason for Abdomen: RLQ Pain Add'l Info: r/o renalcalculi, appy TECHNIQUE: Helical CT of the abdomen and pelvis following theintravenous administration of 99 mL of Omnipaque 350. Oral contrast was notadministered. COMPARISON: None FINDINGS: Lower chest: Normal. Liver: Normal size and attenuation without lesions. Bile ducts: Nondilated. Gallbladder: No calcified gallstones. Normal caliber wall. Pancreas: Normal attenuation without ductal dilatation. Spleen: Normal. Adrenals: Normal. Kidneys: Normal. No renal stones. Urinary Bladder: Normal. Vasculature: No abdominal aortic aneurysm. Lymph Nodes: No enlarged lymph nodes. Bowel: Nondilated, no wall thickening. Normal appendix. Peritoneum and retroperitoneum: No free fluid. No pneumoperitoneum. Noloculated fluid collection or mesenteric inflammation. Abdominal wall: Normal. Reproductive organs: IUD is present in the uterus. Simple cyst leftovary. Osseous structures: No suspicious lesions. IMPRESSION No acute findings or active disease in the abdomen and pelvis. Thank you for letting us participate in the care of this patient. If youare a health care provider and have any questions regarding this report,please contact the number below. For patients who have questions please contactthe health health care aide that requested your imaging first. Massiel RUSS IMG CT ORDERABLES from Last 3 Months Care Teams Asbestos Hazard Abatement Worker Relationship Specialty Start Date End Date Elissa Avendano MD [address] [place] [address] PCP - General Pediatrics 02/04/18
--- OUTSIDE RECORDS SUMMARY | 2024-06-30 14:17 | XMS_ITS | Encounter Summary ---
[facility] [place] [address] Care Team Providers Care Base Remover Name Role Phone Elissa Avendano MD Primary Care Provider [phone] Encounter Details Date Type Department Care Team (Late st Contact Info) Description 05/17/2024 Interpretation Only [facility] [address] [place] [phone] Massiel Meadows PA [address] [place], [place] [id number] Social History Tobacco Use Types Packs/Day Years [...] W CONTRAST STAT 05/17/2024 3:30 PM EST documented in this encounter Results * CT Abdomen & Pelvis w Contrast (05/17/2024 3:30 PM EST) PT CLASS E RAD ADMITDTTM [id number] RAD PT RAD INFO [id number]^LAROW^ MASSIEL^S RAD EXAM DESC CTAPW^CT ABD PELVIS W IV CONTRAST ONLY^RIS RAD WORKSTATION ID [id number] [facility] Anatomical Region Laterality Modality Abdomen, Pelvis Computed [...] who have questions please contact the health managed care nurse that requested your imaging first. ? Electronically signed by: Tito Viera MD, [facility] ([phone]), at 05/17/2024 3:45 PM Narrative 05/17/2024 3:45 PM EST EXAMINATION: CT [...] patients who have questions please contactthe health managed care nurse that requested your imaging first. Massiel RUSS IMG CT ORDERABLES documented in this encounter Visit Diagnoses Not on filedocumented in this encounter Care Teams Base Remover Relationship Specialty Start Date End Date Elissa Avendano MD [address] [place] [address] PCP - General Pediatrics 02/04/18 documented as of this encounter
--- OUTSIDE RECORDS SUMMARY | 2024-06-30 14:17 | XMS_ITS | Encounter Summary ---
Author Organization [facility] Address [facility] [place] [address] Care Team Providers Care Histology Aide Name Role Phone Elissa Avendano MD Primary Care Provider Reason for Visit * Reason Comments Skin Lesion Encounter Details Date Type Department Care Team (Late st Contact Info) Description 02/18/2018 4:00 PM EDT Office Visit Dermatology at [place] [address] [place] [address] [facility] [address] [place] [address] Molluscum contagiosum; Staph infection Social History Tobacco [...] by: Lucita Choudhury MD Resident in Dermatology [facility] Patient seen and evaluated with staff co director: Sona Leiva MD Section of Dermatology [facility] * Sona Leiva MD - 02/18/2018 4:00 [...] site documented in this encounter Care Teams Histology Aide Relationship Specialty Start Date End Date Elissa Avendano MD [address] [place] [address] PCP - General Pediatrics 02/04/18 documented as of this encounter
--- OUTSIDE RECORDS SUMMARY | 2024-06-30 14:17 | XMS_ITS | Encounter Summary ---
Author Organization [facility] Address [address] [place] [address] Care Team Providers Care Electrochemist Name Role Phone Unavailable Primary Care Provider Unavailabl e Encounter Details Date Type Department Care Team (Late st Contact Info) Description 06/10/2022 Lab Requisition [facility] Pathology & Laboratory Medicine - [facility] [address] [place] [address] Outr Resulting Lab, Provider Social History Tobacco [...] gonorrhoeae Result Negative Negative 06/11/2022 13:25 EST [facility] Chlamydia trachomatis Result Negative Negative 06/11/2022 13:25 EST [facility] Swab ENTIRE VAGINA / Unknown 06/08/2022 15:30 EST 06/10/2022 18:00 EST us Provider Outr Resulting Lab MICROBIOLOGY - GENER AL ORDERABLES Final Result [facility] [address] [place] [address] documented in this encounter Visit Diagnoses Not on filedocumented in this encounter
--- OUTSIDE RECORDS SUMMARY | 2024-06-30 14:17 | XMS_ITS | Encounter Summary ---
Author Organization [facility] Address [facility] [place] [address] Care Team Providers Care Working Foreman Name Role Phone Elissa Avendano MD Primary Care Provider Encounter Details Date Type Department Care Team (Late st Contact Info) Description 02/06/2018 Telephone Dermatology at [facility] [address] [place] [address] Lucita Choudhury MD [facility] [place] [address] Social History Tobacco Use Types Packs/Day Years [...] seen. No microorganisms seen. ?? Resulting Agency [facility] Lab documented in this encounter Plan of Treatment Not on file documented as of this encounter Visit Diagnoses Not on filedocumented in this encounter Care Teams Working Foreman Relationship Specialty Start Date End Date Elissa Avendano MD [address] [place] [address] PCP - General Pediatrics 02/04/18 documented as of this encounter
[2024-07-01 12:44] LABS: Chlamydia Result Negative (Negative); GC Result Negative (Negative)
== END 2024-06-30 14:06 | disposition home or self-care (01) ==
LOC: NCHCN 14:05
PROVIDERS: Visit Provider Family Medicine
DX: Z11.51 Encounter for screening for human papillomavirus (HPV) (principal); Z11.3 Encounter for screening for infections with a predominantly sexual mode of transmission; Z01.419 Encounter for gynecological examination (general) (routine) without abnormal findings
CPT/HCPCS: 87491; 87591; 88142; 87624